=== PATIENT | male | born 1990 | race Caucasian/White ===

== ENCOUNTER → 2016-05-07 | Outpatient (CLI) | payer OTHER ==
[~2016-05-07] MED LIST: ADV250INH INH; MELO15TA4 PO; SING10TA32 PO
== END | disposition home or self-care (01) ==
LOC: M SMT 08:53
PROVIDERS: ATTEND Urology
DX: C62.90 Malignant neoplasm of unspecified testis, unspecified whether descended or undescended (principal)

== ENCOUNTER → 2016-05-13 | Outpatient (CLI) | payer OTHER | END | disposition home or self-care (01) | LOC: M SMT 08:58 | PROVIDERS: ATTEND Urology | DX: C62.90 Malignant neoplasm of unspecified testis, unspecified whether descended or undescended (principal) ==

== ENCOUNTER → 2016-06-10 | Outpatient (REF) | payer OTHER | END | disposition home or self-care (01) | LOC: M LAB REF 13:33 | PROVIDERS: ATTEND Internal Medicine Medical Oncology | DX: C62.90 Malignant neoplasm of unspecified testis, unspecified whether descended or undescended (principal) ==

== ENCOUNTER → 2016-07-01 | Outpatient (REF) | payer OTHER | LOC: M LAB REF 13:08 | PROVIDERS: ATTEND Internal Medicine Medical Oncology | DX: C62.90 Malignant neoplasm of unspecified testis, unspecified whether descended or undescended (principal) ==

== ENCOUNTER → 2016-07-22 | Outpatient (REF) | payer OTHER | LOC: M LAB REF 12:59 | PROVIDERS: ATTEND Internal Medicine Medical Oncology | DX: C62.90 Malignant neoplasm of unspecified testis, unspecified whether descended or undescended (principal) ==

== ENCOUNTER → 2016-08-12 | Outpatient (REF) | payer OTHER | LOC: M LAB REF 12:41 | PROVIDERS: ATTEND Internal Medicine Medical Oncology | DX: C62.90 Malignant neoplasm of unspecified testis, unspecified whether descended or undescended (principal) ==

== ENCOUNTER → 2016-09-02 | Outpatient (REF) | payer OTHER | LOC: M LAB REF 12:28 | PROVIDERS: ATTEND Internal Medicine Medical Oncology | DX: C62.90 Malignant neoplasm of unspecified testis, unspecified whether descended or undescended (principal) ==

== ENCOUNTER → 2016-09-03 | Outpatient (CLI) | payer OTHER ==
[2016-09-03 14:33] LABS: ANION GAP 8 MEQ/L (8-16); BLOOD UREA NITROGEN 26 MG/DL (7-18); CALCIUM LEVEL 9.2 MG/DL (8.5-10.1); CARBON DIOXIDE LEVEL 28 MEQ/L (21-32); CHLORIDE LEVEL 106 MEQ/L (98-107); CREATININE FOR GFR 1.09 MG/DL (0.70-1.30); GLOMERULAR FILTRATION RATE > 60.0 (>60); GLUCOSE, FASTING 71 MG/DL (70-105); POTASSIUM SERUM 4.2 MEQ/L (3.5-5.1); SODIUM LEVEL 142 MEQ/L (136-145)
== END ==
LOC: M SMT 08:28
PROVIDERS: ATTEND Urology
DX: C62.90 Malignant neoplasm of unspecified testis, unspecified whether descended or undescended (principal)

== ENCOUNTER → 2016-09-09 | Outpatient (CLI) | payer OTHER ==
[~2016-09-09] MED LIST changes: +ISOVUE-370 76% 100ML VIAL (Q9967) As Ordered ONE
--- NOTE | 2016-09-09 08:08 | REP ---
Clinical: Testicular cancer . Comparison: None . Technique: PA and lateral. Findings: The mediastinum and cardiac silhouette are normal. The lung caal are clear and without acute consolidation, effusion, or pneumothorax. The skeletal structures are intact and normal. Impression: 1. No acute cardiopulmonary process. Signed by Clemente Collier MD 09/09/2016 07:59 A
--- NOTE | 2016-09-09 09:00 | REP ---
Clinical: Testicular cancer. Comparison: 04/24/2016. Technique: Axial precontrast images of the abdomen followed by contrast enhanced images of the abdomen and pelvis using 100 ml Isovue 370 intravenous contrast material, delayed images of the abdomen, and coronal/sagittal re-formations. Findings: Lung bases are clear. Visualized heart and pericardium normal. Liver, spleen, pancreas, gallbladder, bilateral adrenal glands and kidneys are normal. The enteric system is without obstruction or acute inflammatory process. Normal terminal ileum and appendix are identified in the right lower quadrant. Colonic/sigmoid diverticula noted without acute diverticulitis. This demonstrates normal bladder and age appropriate prostate/seminal vesicles. Postsurgical changes of the left groin including evidence for left orchiectomy and prostatic testicle. No ascites. No free air. Subtle retroperitoneal/periaortic lymph nodes measure up to approximately 9 mm short axis diameter and are nonspecific. Musculoskeletal structures are intact and normal. Impression: 1. Evidence for prior left orchiectomy. 2. No evidence for recurrence, ascites, or mass lesion. 3. Subtle periaortic retroperitoneal lymph nodes up to 9 mm short axis diameter are nonspecific. 4. Colonic diverticula without acute diverticulitis. Signed by Clemente Collier MD 09/09/2016 08:52 A
== END ==
LOC: M RAD 07:34
PROVIDERS: ATTEND Urology
DX: C62.90 Malignant neoplasm of unspecified testis, unspecified whether descended or undescended (principal); Z90.79 Acquired absence of other genital organ(s); K57.30 Diverticulosis of large intestine without perforation or abscess without bleeding
CPT/HCPCS: 71020; 74178; Q9967

== ENCOUNTER → 2016-12-03 | Outpatient (REF) | payer OTHER ==
[~2016-12-03] MED LIST changes: -ISOVUE-370 76% 100ML VIAL (Q9967) As Ordered ONE
== END ==
LOC: M LAB REF 12:55
PROVIDERS: ATTEND Internal Medicine Medical Oncology
DX: C62.90 Malignant neoplasm of unspecified testis, unspecified whether descended or undescended (principal)

== ENCOUNTER → 2017-02-26 | Outpatient (REF) | payer OTHER | LOC: M LAB REF 12:32 | PROVIDERS: ATTEND Internal Medicine Medical Oncology | DX: C62.90 Malignant neoplasm of unspecified testis, unspecified whether descended or undescended (principal) ==

== ENCOUNTER 2017-03-30 11:13 | Emergency (ER) | payer OTHER ==
[~2017-03-30] VITALS: Ht 175.3 cm; Wt 88.6 kg
[2017-03-30] MEDS ORDERED: BACLOFEN 10 MG TAB PO ONE (12:30)
[2017-03-30] MEDS ORDERED: PERCOCET 5MG/325MG TAB PO ONE (12:30)
--- NOTE | 2017-03-30 14:14 | REP ---
Clinical: Pain. Technique: AP, lateral, bilateral oblique, and coned-down views. Findings: Alignment and lordosis is maintained. The vertebral bodies including transverse process and spinous processes are intact and normal. There is no evidence for acute fracture / compression injury or subluxation. No evidence for spondylolysis or spondylolisthesis. No significant degenerative change is noted. Impression: Normal lumbosacral spine radiograph series. Signed by Clemente Collier MD 03/30/2017 02:05 P
[2017-03-30] MEDS ORDERED: diazePAM 5 MG TAB PO ONE (15:15)
[2017-03-30] MEDS ORDERED: CYCL10TA PO (15:27)
[2017-03-30] MEDS ORDERED: PERC5TAB12 PO (15:27)
[2017-03-30 15:34] VITALS: BP 134/70
[2017-03-30] MEDS ORDERED: NEOSPORIN OINT 0.9 GM PKT (FLOOR STOCK) As Ordered ONE (15:46)
== END 2017-03-30 16:13 | disposition home or self-care (01) ==
LOC: M ED 11:13
DX: S39.012A Strain of muscle, fascia and tendon of lower back, initial encounter (principal); X50.9XXA Other and unspecified overexertion or strenuous movements or postures, initial encounter; Y92.330 Ice skating rink (indoor) (outdoor) as the place of occurrence of the external cause; Y93.21 Activity, ice skating; Y99.8 Other external cause status; J45.909 Unspecified asthma, uncomplicated; Z79.51 Long term (current) use of inhaled steroids; Z79.899 Other long term (current) drug therapy; Z92.21 Personal history of antineoplastic chemotherapy; Z85.47 Personal history of malignant neoplasm of testis

== ENCOUNTER → 2017-07-03 | Outpatient (REF) | payer OTHER ==
[2017-07-04 08:19] LABS: HCG SERUM TUMOR MARKER QUANT < 1 mIU/mL (0-3)
[2017-07-04 08:38] LABS: ALPHA FETOPROTEIN TUMOR QUANT < 1.3 NG/ML (<8.1)
== END ==
LOC: M LAB REF 13:36
DX: C62.90 Malignant neoplasm of unspecified testis, unspecified whether descended or undescended (principal)

== ENCOUNTER → 2017-07-04 | Outpatient (CLI) | payer OTHER ==
[2017-07-04 19:05] LABS: ALPHA FETOPROTEIN TUMOR QUANT < 1.3 NG/ML (<8.1)
[2017-07-06 08:08] LABS: HCG SERUM TUMOR MARKER QUANT < 1 mIU/mL (0-3)
== END ==
LOC: M SMT 13:56
DX: C62.90 Malignant neoplasm of unspecified testis, unspecified whether descended or undescended (principal)

== ENCOUNTER → 2017-08-26 | Outpatient (CLI) | payer OTHER ==
[~2017-08-26] MED LIST changes: -ADV250INH INH; +GASTROGRAFIN SOLUTION 30ML (Q9963) As Ordered; +ISOVUE-370 76% 100ML VIAL (Q9967) As Ordered; -MELO15TA4 PO; -SING10TA32 PO
== END ==
LOC: M RAD 11:20
DX: C62.90 Malignant neoplasm of unspecified testis, unspecified whether descended or undescended (principal)
CPT/HCPCS: Q9963

== ENCOUNTER → 2017-08-26 | Outpatient (REF) | payer OTHER ==
[2017-08-26 14:32] LABS: ALPHA FETOPROTEIN TUMOR QUANT 2.5 NG/ML (<8.1)
[2017-08-27 08:06] LABS: HCG SERUM TUMOR MARKER QUANT < 1 mIU/mL (0-3)
== END ==
LOC: M LAB REF 13:37
DX: C62.92 Malignant neoplasm of left testis, unspecified whether descended or undescended (principal)

== ENCOUNTER → 2017-08-28 | Outpatient (CLI) | payer OTHER | LOC: M RAD 08:46 | DX: R04.2 Hemoptysis (principal) | CPT/HCPCS: 71250 ==